=== PATIENT | female | born 1985 | race Caucasian/White ===

== ENCOUNTER 2021-09-18 16:25 | Emergency (ER) | payer OTHER, SELFPAY ==
[2021-09-18 16:35] VITALS: BP 135/86; PULSE 95; RESP 18; TEMP 37.3; O2SAT 100
--- NOTE | 2021-09-18 16:52 | ED.SKABFB ---
HPI - Skin/Abscess/Foreign Bdy General Chief complaint: Skin/Abscess/Foreign Body Stated complaint: insect bite Time Seen by Provider: 09/18/21 16:40 Source: patient Mode of arrival: ambulatory Limitations: no limitations History of Present Illness HPI narrative: 35-year-old female presented for complaint of right upper arm redness, pain, and swelling after insect sting yesterday. She has been using benadryl, triamcinolone cream, hydrocortisone cream and ice at improvement. States redness is spreading. complaint: rash Related Data Allergies Allergy/AdvReac Type Severity Reaction Status Date / Time Penicillins Allergy Other Verified 09/18/21 16:55 Review of Systems Review of Systems: CONSTITUTIONAL: Denies body aches, fever, chills, or sweats. CARDIOVASCULAR: Denies chest pain, palpitations, or edema. RESPIRATORY: Denies cough or dyspnea. GASTROINTESTINAL: Denies abdominal pain, nausea, vomiting, or diarrhea. SKIN: red rash, itching right arm NEUROLOGIC: Denies headache, numbness, tingling, or weakness. PSYCH: Denies depression or anxiety. PMFSH Comments At time of signature, I have reviewed and agree with nursing past medical, surgical, social and family history unless otherwise noted. Please see nursing chart for further information. There is no relevant family history pertinent to the presenting complaint Exam Narrative: GENERAL: Well-appearing, EYES: conjunctivae clear, and EOMI. ENT: Mucous membranes moist. Oropharynx without edema, erythema or lesions. CHEST: Clear to auscultation. No respiratory distress. HEART: Regular rate and rhythm. SKIN: Warm, dry. approx [id number] diameter area of erythema to posterior upper arm, no induration or fluctuance NEURO: Alert and oriented x3. PSYCH: Normal mood and affect Course Course Emergency Course: Patient is aware of diagnosis, understands and agrees to treatment plan. Anticipatory guidance given. Patient agrees to follow-up as directed and is aware of reasons to seek care at the emergency department. Portions of this record may have been created with voice recognition software Level of Care: Express Care Visit Vital Signs Vital signs: Vital Signs Temperature 99.1 F 09/18/21 16:35 Pulse Rate 95 09/18/21 16:35 Respiratory Rate 18 09/18/21 16:35 Blood Pressure 135/86 09/18/21 16:35 Pulse Oximetry 100 09/18/21 16:35 Oxygen Delivery Room Air 09/18/21 16:35 Temperature 99.1 F 09/18/21 16:35 Pulse Rate 95 09/18/21 16:35 Respiratory Rate 18 09/18/21 16:35 Blood Pressure 135/86 09/18/21 16:35 Pulse Oximetry 100 09/18/21 16:35 Oxygen Delivery Room Air 09/18/21 16:35 Reviewed MDM - Skin/Abscess/Foreign Bdy MDM Narrative Medical decision making narrative: IM solumedrol given, pt reports improvement. Instructed patient to go to nearest ER immediately for any worsening symptoms including but not limited to: fever, spreading rash/redness, pain, sore throat, headache, dizziness, chest pain, trouble breathing, or any symptoms concerning to the patient. Differential Diagnosis Differential diagnosis: Likely abscess of skin or subcutaneous tissue, urticaria, herpes zoster, cellulitis, insect bites, contact dermatitis and other (allergic reaction) Discharge Plan Discharge Clinical Impression: Allergic reaction Qualifiers: Encounter type: initial encounter Qualified Code(s): T78.40XA - Allergy, unspecified, initial encounter Patient Disposition: Home, Self-Care Condition: Stable Instructions: Antibiotic Form, Insect Bite or Sting (ED) Additional Instructions: Take the steroid prescription as directed, start tomorrow Take the antibiotic as directed Take Benadryl every 6-8 hours as needed for itching. Cool compresses to the sites of itching, avoid hot water/showers etc Avoid itching to prevent skin infections. Follow up with your primary care provider as needed Go to the ER for worsening symptoms or melania
[2021-09-18] MEDS: methylPREDNISolone SOD SUCC 125 MG VIAL IM (17:01)
== END 2021-09-18 17:35 | disposition home or self-care (01) ==
PROVIDERS: Emergency Provider Nurse Practitioner Family; PCP Nurse Practitioner Family
DX: T78.40XA Allergy, unspecified, initial encounter (principal)
CPT/HCPCS: 96372; 99213; G0463; J2930